=== PATIENT | male | born 1970 | race Caucasian/White ===

== ENCOUNTER 2020-02-16 14:25 | Outpatient (CLI) | payer BC | END 2020-02-16 23:59 | disposition home or self-care (01) | LOC: LAB.R 14:25 | PROVIDERS: ATTEND Emergency Medicine | DX: R05 Cough (principal); Z20.828 Contact with and (suspected) exposure to other viral communicable diseases ==

== ENCOUNTER 2020-02-16 15:00 | Outpatient (CLI) | payer BC ==
--- NOTE | 2020-02-16 15:22 | XRAY Report ---
PROCEDURE: Chest 2 View X-Ray INDICATIONS: COUGH TECHNIQUE: 2 view(s) of the chest. COMPARISON: None. FINDINGS: Surgical changes and devices: None. Lungs and pleura: No pleural effusions or pneumothorax. There is a focal consolidation involving the medial aspect of the left midlung zone which localizes to the superior segment of the left lower lob e. Remainder of the visualized lungs appear clear. Mediastinum: Mediastinal contours are normal. Heart size is normal. Bones and chest wall: No suspicious bony abnormalities. Soft tissues appear unremarkable. IMPRESSION: Left mid lung zone consolidation compatible with focal airspace disease/pneumonia. Recommend follow-u p chest radiograph 4-6 weeks after treatment to document resolution of this finding as underlying dima plastic process not excluded. Reviewed by: Parish Herman MD on 02/16/2020 2:21 PM [facility] Approved by: Parish Herman MD on 02/16/2020 2:21 PM [facility] Station ID: [id number]
== END 2020-02-16 15:01 | disposition home or self-care (01) ==
LOC: DI.S 15:00
PROVIDERS: ATTEND Emergency Medicine
DX: J18.1 Lobar pneumonia, unspecified organism (principal); R05 Cough; Z20.828 Contact with and (suspected) exposure to other viral communicable diseases
CPT/HCPCS: 71046

== ENCOUNTER 2020-03-30 12:53 | Outpatient (CLI) | payer BC ==
--- NOTE | 2020-03-30 13:21 | XRAY Report ---
PROCEDURE: Chest 2 View X-Ray INDICATIONS: COUGH TECHNIQUE: 2 view(s) of the chest. COMPARISON: None. FINDINGS: Surgical changes and devices: None. Lungs and pleura: No pleural effusions or pneumothorax. Unchanged left midlung airspace opacity. Mediastinum: Mediastinal contours are normal. Heart size is normal. Bones and chest wall: No suspicious bony abnormalities. Soft tissues appear unremarkable. IMPRESSION: Consolidative opacity in the left midlung has changed very little since February 2020. C T of the chest with IV contrast is recommended. This could simply represent residual or recurrent pne umonia, although given the persistence there is concern for an underlying neoplasm. Reviewed by: Donn Best MD on 03/30/2020 12:[address] [facility] Approved by: Donn Best MD on 03/30/2020 12:[address] [facility] Station ID: [id number]
== END 2020-03-30 23:59 | disposition home or self-care (01) ==
LOC: DI.S 12:53
PROVIDERS: ATTEND Physician Assistant Medical
DX: R91.8 Other nonspecific abnormal finding of lung field (principal)

== ENCOUNTER 2020-04-27 10:22 | Outpatient (CLI) | payer BC ==
[2020-04-27 15:36] LABS: BASOPHILS # (AUTO) 0.1 10^3/uL (0.0-0.1); BASOPHILS % (AUTO) 0.7 %; EOSINOPHILS # (AUTO) 0.2 10^3/uL (0.0-0.7); HGB - HEMOGLOBIN 12.3 g/dL (14.0-18.0); LYMPHOCYTES # (AUTO) 2.6 10^3/uL (1.5-3.5); LYMPHOCYTES % (AUTO) 24.5 %; MEAN CORPUSCULAR HEMOGLOBIN 30.1 pg (27.0-31.0); MEAN CORPUSCULAR HGB CONC 30.9 g/dL (32.0-36.0); MEAN CORPUSCULAR VOLUME 97.3 fL (80.0-94.0); MEAN PLATELET VOLUME 9.2 fL (7.4-11.4); MONOCYTES # (AUTO) 0.7 10^3/uL (0.0-1.0); MONOCYTES % (AUTO) 6.2 %; NEUTROPHILS # (AUTO) 7.1 10^3/uL (1.5-6.6); NEUTROPHILS % (AUTO) 66.1 %; PLT - PLATELET COUNT 468 10^3/uL (130-450); RED BLOOD COUNT 4.09 10^6/uL (4.70-6.10); RED CELL DISTRIBUTION WIDTH 13.4 % (12.0-15.0); WHITE BLOOD COUNT 10.7 x10^3/uL (4.8-10.8)
[2020-04-27 15:53] LABS: ALBUMIN 3.6 g/dL (3.2-5.5); ALBUMIN/GLOBULIN RATIO 0.8 (1.0-2.2); BILIRUBIN,TOTAL 0.6 mg/dL (0.2-1.0); CALCIUM 9.1 mg/dL (8.5-10.3); CREATININE 0.8 mg/dL (0.6-1.2); TOTAL PROTEIN 8.2 g/dL (6.7-8.2)
== END 2020-04-27 10:23 | disposition home or self-care (01) ==
LOC: LAB.S 10:22
PROVIDERS: ATTEND Internal Medicine
DX: J98.4 Other disorders of lung (principal)
CPT/HCPCS: 36415; 80053; 85025

== ENCOUNTER 2020-05-14 16:31 | Outpatient (CLI) | payer BC | END 2020-05-14 16:32 | disposition home or self-care (01) | LOC: COV 16:31 | PROVIDERS: ATTEND Physician Assistant | DX: Z01.812 Encounter for preprocedural laboratory examination (principal); Z20.822 Contact with and (suspected) exposure to COVID-19 ==